=== PATIENT | male | born 1960 | race Caucasian/White ===

== ENCOUNTER 2024-06-26 11:07 | Day surgery (SDC) | payer BC ==
[2024-06-26 08:56] LABS: Absolute Eosinophils 0.2 K/uL (0-0.5); Absolute Monocytes 0.5 K/uL (0.1-1.3); Absolute Neutrophil 5.8 K/uL (1.8-8.0); Basophils % 0.4 % (0-1.3); Eosinophils % 2.4 % (0-4.4); Hematocrit 47.6 % (39.6-49.0); Lymphocytes % 23.1 % (15.3-44.8); MCH 29.8 pg (27.0-35.0); MCHC 33.6 g/dL (32.0-36.0); MCV 88.6 fL (80-100); MPV 8.4 fL (7.6-11.3); Monocytes % 6.2 % (3.3-12.3); Neutrophils % 67.9 % (41.7-73.7); Nucleated Red Blood Cells % 0.2 % (0-0); Platelets 235 thou/uL (152-406); RBC Red Blood Cell Count 5.37 M/uL (4.33-5.43)
[2024-06-26 09:10] LABS: Anion Gap 4.9 mEq/L (5.0-15.0); Potassium 3.9 mEq/L (3.5-5.1)
[2024-06-26] MEDS ORDERED: Ringers Lactate 0 ML IV ONE (11:22)
[2024-06-26] MEDS ORDERED: ONDANSETRON 4 MG/2 ML VIAL ONE (14:17)
[2024-06-26] MEDS ORDERED: propofoL 200 MG/20 ML VIAL IV ONE (14:17)
[2024-06-26] MEDS ORDERED: FENTANYL CITR 100 MCG/2 ML ONE (14:17)
[2024-06-26] MEDS ORDERED: MIDAZOLAM HCL 2 MG/2 ML INJ ONE (14:17)
[2024-06-26] MEDS ORDERED: dexAMETHasone 10 MG/ML VIAL ONE (14:17)
[2024-06-26] MEDS ORDERED: KETOROLAC 30 MG/ML INJ ONE (14:17)
[2024-06-26] MEDS ORDERED: ROCURONIUM 50 MG/5 ML VIAL IV ONE (14:17)
[2024-06-26] MEDS ORDERED: LIDOCAINE 2% MPF 5 ML VIAL ONE (14:17)
[2024-06-26] MEDS: CEFAZOLIN SODIUM 2 GM/VIAL ONE (14:49)
[2024-06-26] MEDS: LIDOCAINE HCL/EPINEPHRINE 20 ML MDV ONE (15:03)
[2024-06-26] MEDS ORDERED: EPHEDRINE SULF 50 MG/ML VIAL ONE (15:11)
--- NOTE | 2024-06-26 15:40 | EKG ---
Test Date: 2024-06-26 Test Time: 09:44:57 Interlocking Pavement Installer: JORGE A MEASUREMENT RESULTS: Intervals: Rate: 67 NC: 130 QRSD: 80 QT: 404 QTc: 426 [place]: P: 46 NC: 130 QRS: 54 T: 48 INTERPRETIVE STATEMENTS: Normal sinus rhythm Normal ECG Compared to ECG 02/01/2011 15:22:23 No significant changes Electronically Signed On 06-26-24 15:39:31 TOUR DRIVER by Donnie Burgess
[2024-06-26] MEDS ORDERED: NEOSTIGMINE 1 MG/ML -10 ML VIAL ONE (15:43)
[2024-06-26] MEDS ORDERED: GLYCOPYRROLATE 0.2 MG/ML SYR ONE (15:44)
--- NOTE | 2024-06-26 15:54 | P.OP ---
Preoperative diagnosis: LEFT Inguinal Hernia Postoperative diagnosis: LEFT Inguinal Hernia Primary procedure: Open LEFT inguinal hernia Anesthesia: GETA + Local Estimated blood loss: 5cc Specimen: Left Cord Lipoma Findings: Large inguinal hernia Complications: None Implants: Bard Perfix Plug and Patch - Large Transferred to: Recovery Room Condition: Good
[2024-06-26 16:40] VITALS: O2SAT 100
[2024-06-26 17:05] VITALS: BP 114/90; TEMP 97.1
[2024-06-26] MEDS ORDERED: HYDROCODONE/APAP 10/325 TAB ONE (17:12)
[2024-06-26] MEDS: HYDROCODONE/APAP 10/325 TAB PO ONE (18:15)
[2024-06-26] MEDS ORDERED: Ringers Lactate 1,000 ML IV ONE (18:32)
[2024-06-26] MEDS ORDERED: TAMSULOSIN 0.4 MG SR CAP ONE ×2 (18:36→19:35)
[2024-06-26] MEDS: TAMSULOSIN 0.4 MG SR CAP PO ONE (19:38)
--- NOTE | 2024-06-26 23:02 | OP ---
Date of Procedure: 06/26/2024 Surgeon: Pedro Kim MD, Preoperative Diagnosis: Left inguinal hernia. Postoperative Diagnosis: Left inguinal hernia. Procedure: Open left inguinal hernia repair with mesh. Anesthesia: General endotracheal plus local, 1% lidocaine. Estimated Blood Loss: Less than 5 cc. Specimens: Cord lipoma. Findings: Large left inguinal hernia was appreciated. Complications: None. Implants: Bard PerFix plug and patch hernia repair system, large plug utilized. Disposition: The patient was transferred to recovery room in good condition. Procedure In Detail: After informed consent was obtained, the patient was brought to the operating r oom, prepped and draped in the usual sterile fashion. After adequate anesthesia was achieved, I diss ected down to subcutaneous tissues of the left inguinal region, down to subcutaneous tissues ultimate ly exposing Camper fat and Anika fascia to expose the external oblique aponeurosis. This was opened sharply. This was found to be quite thin and alveolar, essentially damaged by a very large protrudi ng hernia, which had protruded through this area dilating up the external oblique aponeurosis to zeke r thin appearance. After I opened this sharply in its entirety, I dissected down circumferentially a round to protect the spermatic cord structures, ultimately encircling them with a Line [place] drain, diss ecting free a very large hernia sac off the cord structures. I ultimately returned the hernia sac an d contents of the preperitoneal position and deployed a large Bard PerFix plug into the preperitoneal space and secured it circumferentially around using 2-0 PDS sutures around the shelving edge. Ultim ately, good apposition of the mesh was appreciated without any additional protrusion. At this point, I laid down the hernia plug on the medial aspect of the pubic tubercle, securing with a 2-0 PDS sutu re and circumferentially down to the shelving edge of both the internal oblique aponeurosis and the u ndersurface of the inguinal ligament using interrupted 2-0 PDS sutures. I then reconstituted the estrella p inguinal ring using the same set 2-0 PDS suture and trimmed the mesh appropriately. At this point, the area was copiously irrigated, cleansed and suctioned out to completely dry. I then closed the r esidual external oblique aponeurosis using a running 3-0 Vicryl suture, and Camper fat and Anika fas janae were closed also with interrupted 3-0 Vicryl sutures, and deep dermal plane was closed with 3-0 V icryl suture. Skin was closed with a 4-0 Monocryl in a running fashion. Dermabond was placed over t op. The patient tolerated the procedure well without incident or complication, and transferred to [facility] in good condition. All counts were correct at the end of the case. WALTER/WM Voice ID: [id number] Report ID: [id number]
== END 2024-06-26 22:34 | disposition home or self-care (01) ==
LOC: OR 11:07
PROVIDERS: ATTEND Surgery
PROC: 0YU60JZ Supplement Left Inguinal Region with Synthetic Substitute, Open Approach (ICD-10-PCS; principal; 2024-06-26 13:15)
DX: K40.90 Unilateral inguinal hernia, without obstruction or gangrene, not specified as recurrent (principal)
CPT/HCPCS: 93005; 85025; 80048; 36415; 49505; J2704; J2710; J2003; J2250; J3010; J1100; J2405; J7120